=== PATIENT | female | born 1970 | race Caucasian/White ===

== ENCOUNTER 2017-03-10 18:23 | Emergency (ER) | payer OTHER ==
[~2017-03-10] VITALS: Ht 152.4 cm; Wt 70.4 kg
[2017-03-10 18:24] VITALS: BP 120/80
[2017-03-10] MEDS ORDERED: OXYcodone/APAP 5/325MG TABLET PO ONE (19:00)
[2017-03-10] MEDS ORDERED: KETOROLAC 30 MG/1 ML IM ONE (19:00)
[2017-03-10] MEDS ORDERED: DIAZEPAM 5 MG TABLET PO ONE (19:00)
[2017-03-10] MEDS ORDERED: DIAZEPAM 5 MG TABLET ONE (19:30)
[2017-03-10] MEDS ORDERED: KETOROLAC 30 MG/1 ML ONE (19:31)
[2017-03-10] MEDS ORDERED: OXYcodone/APAP 5/325MG TABLET ONE (19:31)
== END 2017-03-10 20:14 | disposition home or self-care (01) ==
LOC: ED 20:10
DX: S33.5XXA Sprain of ligaments of lumbar spine, initial encounter (principal); Z88.8 Allergy status to other drugs, medicaments and biological substances; V43.52XA Car driver injured in collision with other type car in traffic accident, initial encounter; Y93.89 Activity, other specified; Y99.8 Other external cause status; Y92.89 Other specified places as the place of occurrence of the external cause
CPT/HCPCS: 72072; 72110; 96372; 99284; J1885

== ENCOUNTER 2017-08-01 15:47 | Emergency (ER) | payer BC, OTHER ==
[~2017-08-01] VITALS: Ht 162.6 cm; Wt 67.0 kg
[2017-08-01 15:49] VITALS: BP 125/87
[2017-08-01] MEDS ORDERED: ONDANSETRON 2MG/ML, 2ML IVPush ONE (16:30)
[2017-08-01] MEDS ORDERED: SODIUM CHLORIDE FLUSH 10ML SYR IVF ONE (16:30)
[2017-08-01 16:41] LABS: HEMATOCRIT 43.4 % (34.6-47.8); HEMOGLOBIN 14.5 g/dL (11.7-16.4); WHITE BLOOD COUNT 8.1 x10^3/uL (3.4-10)
[2017-08-01 16:47] LABS: BLOOD UREA NITROGEN 12 mg/dL (7-18)
[2017-08-01] MEDS ORDERED: ONDANSETRON 2MG/ML, 2ML ONE (16:50)
[2017-08-01] MEDS ORDERED: MORPHINE SULFATE 4 MG/ML, 1ML ONE ×2 (16:50→17:47)
[2017-08-01] MEDS: MORPHINE SULFATE 4 MG/ML, 1ML IVPush PRN ×2 (16:53→17:53)
[2017-08-01] MEDS ORDERED: LAMO200T3 PO (16:58)
[2017-08-01] MEDS ORDERED: LEVO75TA5 PO (16:58)
[2017-08-01] MEDS ORDERED: OXYB15TA PO (16:58)
[2017-08-01] MEDS ORDERED: TOPI100T24 PO (16:58)
[2017-08-01] MEDS ORDERED: LIOT5TAB3 PO (16:58)
[2017-08-01] MEDS ORDERED: LITH300C PO (16:58)
[2017-08-01] MEDS ORDERED: MAALOX/HYOSCYAMINE/LIDOCAINE 45 ML BTL PO ONE (17:30)
[2017-08-01] MEDS ORDERED: MAALOX/HYOSCYAMINE/LIDOCAINE 45 ML BTL ONE (17:47)
[2017-08-01] MEDS ORDERED: KETOROLAC 30 MG/1 ML ONE (17:47)
[2017-08-01] MEDS ORDERED: MORPHINE SULFATE 4 MG/ML, 1ML IVPush PRN (18:00)
[2017-08-01] MEDS ORDERED: KETOROLAC 30 MG/1 ML IVPush ONE (18:00)
== END 2017-08-01 18:54 | disposition home or self-care (01) ==
LOC: ED 17:35
DX: K21.9 Gastro-esophageal reflux disease without esophagitis (principal)
CPT/HCPCS: 36415; 74176; 80048; 81001; 82040; 85025; 87086; 96374; 96375; 96376; 99285; J1885; J2405

== ENCOUNTER 2019-09-07 18:02 | Emergency (ER) | payer OTHER ==
[~2019-09-07] VITALS: Ht 162.6 cm; Wt 77.0 kg
[~2019-09-07 18:02] MED LIST: LAMO200T3 PO; LEVO75TA5 PO; LIOT5TAB11 PO; LITH300C PO; OXYB15TA PO; TOPI100T24 PO
--- NOTE | 2019-09-07 18:20 | NUR ---
MD AT BEDSIDE TO ASSESS PT
--- NOTE | 2019-09-07 18:22 | NUR ---
PT UP TO RESTROOM FOR URINE SAMPLE AT THIS TIME. PT EDUCATED ON CLEAN CATCH METHOD
[2019-09-07] MEDS ORDERED: METOCLOPRAMIDE 5 MG/ML, 2ML ONE (18:29)
[2019-09-07] MEDS ORDERED: DIPHENHYDRAMINE 50 MG/ML, 1ML ONE (18:29)
[2019-09-07] MEDS ORDERED: KETOROLAC 30 MG/1 ML ONE (18:29)
[2019-09-07] MEDS ORDERED: SODIUM CHLORIDE 0.9% 1,000ML IVBOLUS ONE (18:30)
[2019-09-07] MEDS ORDERED: DIPHENHYDRAMINE 50 MG/ML, 1ML IVPush ONE (18:30)
[2019-09-07] MEDS ORDERED: ONDANSETRON 2MG/ML, 2ML ONE ×2 (18:30→21:01)
[2019-09-07] MEDS ORDERED: KETOROLAC 30 MG/1 ML IVPush ONE (18:30)
[2019-09-07] MEDS ORDERED: ONDANSETRON 2MG/ML, 2ML IVPush ONE ×2 (18:30→21:00)
[2019-09-07] MEDS ORDERED: METOCLOPRAMIDE 5 MG/ML, 2ML IVPush ONE (18:30)
[2019-09-07] MEDS ORDERED: SODIUM CHLORIDE FLUSH 10ML SYR IVF ONE (18:30)
--- NOTE | 2019-09-07 18:57 | NUR ---
URINE SPECIMEN WALKED TO LAB.
[2019-09-07 19:00] LABS: BASOPHILS # (AUTO) 0.09 x10^3/uL (0-0.1); BASOPHILS % (AUTO) 1 % (0-1); EOSINOPHILS % (AUTO) 1 % (1-7); LYMPHOCYTES # (AUTO) 1.46 x10^3/uL (1-3.4); LYMPHOCYTES % (AUTO) 15 % (22-44); MD NO; MEAN CORPUSCULAR HEMOGLOBIN 31.3 pg (27.0-34.8); MEAN CORPUSCULAR HGB CONC 33.2 g/dL (32.4-35.8); MEAN CORPUSCULAR VOLUME 94.2 fL (80-100); MEAN PLATELET VOLUME 7.8 fL (7.4-10.4); MONOCYTES # (AUTO) 0.41 x10^3/uL (0.2-0.8); MONOCYTES % (AUTO) 4 % (2-9); NEUTROPHILS # (AUTO) 7.94 x10^3/uL (1.8-6.8); NEUTROPHILS % (AUTO) 80 % (42-75); PLATELET COUNT 380 x10^3/uL (130-400); RED BLOOD COUNT 4.52 x10^6/uL (3.82-5.3); RED CELL DISTRIBUTION WIDTH 12.7 % (9.6-15.2)
[2019-09-07 19:07] LABS: ALANINE AMINOTRANSFERASE 43 U/L (12-78); ALBUMIN 4.4 g/dL (3.4-5.0); ANION GAP 9 mmol/L (5-15); CALCIUM 9.3 mg/dL (8.5-10.1); CHLORIDE 113 mmol/L (98-107); CREATININE 1.19 mg/dL (0.55-1.02)
[2019-09-07 19:09] LABS: ALKALINE PHOSPHATASE 112 U/L (45-117); BILIRUBIN,TOTAL 0.5 mg/dL (0.2-1.0); TOTAL PROTEIN 7.6 g/dL (6.4-8.2)
[2019-09-07 19:11] LABS: HCG UR SG 1.016 (1.003-1.030); MICROSCOPIC AUTO
[2019-09-07 19:12] LABS: CULTURE INDICATED? YES
[2019-09-07] MEDS ORDERED: CEFTRIAXONE PMX 1GM/50ML 50 ML ONE (20:24)
[2019-09-07] MEDS ORDERED: CEFTRIAXONE PMX 1GM/50ML 50 ML IV ONE (20:30)
--- NOTE | 2019-09-07 20:33 | NUR ---
ROCEPHIN ZAHIRA, INFUSING AT 100ML/HR VIA PUMP. IV SITE PATENT. PT LYING QUIETLY ON BED. REPORTS SLIGHT IMPROVEMENT IN STEVENS PAIN, BUT CONTINUING NAUSEA; REQUESTED ADDITIONAL ZOFRAN; ERP WILL BE CONSULTED. SIDE RAILS UP X2, CALL LIGHT W/IN REACH, ROOM LIGHTS DIMMED. PT'S DAUGHTER IN ROOM.
[2019-09-07] MEDS ORDERED: ESZO3TAB28 PO (20:41)
--- NOTE | 2019-09-07 21:06 | NUR ---
ROCEPHIN INFUSED. ZOFRAN GIVEN PER EMAR.
[2019-09-07 21:07] VITALS: BP 101/63
== END 2019-09-07 21:19 | disposition home or self-care (01) ==
LOC: ED 20:01
DX: G43.009 Migraine without aura, not intractable, without status migrainosus (principal); N10 Acute pyelonephritis; K21.9 Gastro-esophageal reflux disease without esophagitis; Z90.49 Acquired absence of other specified parts of digestive tract; Z90.710 Acquired absence of both cervix and uterus; Z87.891 Personal history of nicotine dependence
CPT/HCPCS: 36415; 80053; 81001; 81025; 83690; 85025; 87086; 96361; 96365; 96375; 96376; 99283; J0696; J1200; J1885; J2405; J2765; J7030

== ENCOUNTER 2019-09-10 10:30 | Emergency (ER) | payer OTHER ==
[~2019-09-10] VITALS: Ht 162.6 cm; Wt 77.7 kg
[~2019-09-10 10:30] MED LIST changes: +ESZO3TAB28 PO
[2019-09-10 11:25] LABS: BASOPHILS # (AUTO) 0.07 x10^3/uL (0-0.1); BASOPHILS % (AUTO) 1 % (0-1); EOSINOPHILS # (AUTO) 0.12 x10^3/uL (0-0.4); EOSINOPHILS % (AUTO) 2 % (1-7); LYMPHOCYTES % (AUTO) 29 % (22-44); MD NO; MEAN CORPUSCULAR HEMOGLOBIN 31.6 pg (27.0-34.8); MEAN CORPUSCULAR HGB CONC 33.4 g/dL (32.4-35.8); MEAN CORPUSCULAR VOLUME 94.7 fL (80-100); MEAN PLATELET VOLUME 7.4 fL (7.4-10.4); MONOCYTES % (AUTO) 5 % (2-9); NEUTROPHILS # (AUTO) 3.61 x10^3/uL (1.8-6.8); NEUTROPHILS % (AUTO) 62 % (42-75); PLATELET COUNT 384 x10^3/uL (130-400); RED BLOOD COUNT 4.86 x10^6/uL (3.82-5.3); RED CELL DISTRIBUTION WIDTH 12.7 % (9.6-15.2)
[2019-09-10 11:33] LABS: ALANINE AMINOTRANSFERASE 39 U/L (12-78); ALBUMIN 4.5 g/dL (3.4-5.0); ANION GAP 7 mmol/L (5-15); CALCIUM 9.7 mg/dL (8.5-10.1); CHLORIDE 112 mmol/L (98-107)
[2019-09-10 11:36] LABS: ALKALINE PHOSPHATASE 118 U/L (45-117); BILIRUBIN,TOTAL 0.5 mg/dL (0.2-1.0); CREATININE 1.38 mg/dL (0.55-1.02); TOTAL PROTEIN 7.9 g/dL (6.4-8.2)
--- NOTE | 2019-09-10 12:49 | NUR ---
TO ROOM AT THIS TIME
--- NOTE | 2019-09-10 13:10 | NUR ---
BREAK RN: THIS IS A 48 YO FEMALE WHO PRESENTS TO THE ER C/O RIGHT FLANK PAIN RADIATING DOWN RIGHT LEG WITH GENERAL BODY ACHES. PT REPORTS NAUSEA BUT DENIES VOMITING OR DIARRHEA. PT AO X 4. SKIN PWD. RESP EVEN AND UNLABORED. PT ON CONT BP AND O2 MONITORS. CALL LIGHT WITHIN REACH. WILL CONT TO MONITOR PT.
[2019-09-10 13:11] VITALS: BP 118/80
[2019-09-10] MEDS ORDERED: KETOROLAC 30 MG/1 ML ONE (13:13)
[2019-09-10] MEDS ORDERED: HYDROcodone/APAP 5/325 TABLET ONE (13:13)
[2019-09-10] MEDS ORDERED: ONDANSETRON ODT 8 MG ONE (13:13)
[2019-09-10] MEDS ORDERED: KETOROLAC 30 MG/1 ML IM ONE (13:30)
[2019-09-10] MEDS ORDERED: ONDANSETRON ODT 8 MG PO ONE (13:30)
[2019-09-10] MEDS ORDERED: HYDROcodone/APAP 5/325 TABLET PO ONE (13:30)
[2019-09-10 13:31] LABS: MICROSCOPIC NOT IND
[2019-09-10 13:38] LABS: CULTURE INDICATED? NO
== END 2019-09-10 14:20 | disposition home or self-care (01) ==
LOC: ED 14:13
DX: R10.9 Unspecified abdominal pain (principal); Z90.49 Acquired absence of other specified parts of digestive tract; Z90.710 Acquired absence of both cervix and uterus; Z88.8 Allergy status to other drugs, medicaments and biological substances
CPT/HCPCS: 36415; 74176; 80053; 81003; 83605; 85025; 87040; 96372; 99284; J1885; Q0162